=== PATIENT | female | born 1940 | race African-American/Black ===

== ENCOUNTER 2016-09-13 09:05 | Inpatient (IN) | payer MEDICARE, MEDICAID ==
[~2016-09-13] VITALS: Ht 162.6 cm; Wt 65.8 kg
[2016-09-13] MEDS ORDERED: ONDANSETRON HCL 4MG/2ML VIAL IV STA (09:15)
[2016-09-13] MEDS ORDERED: FAMOTIDINE 20MG/2ML VIAL IV STA (09:15)
[2016-09-13] MEDS ORDERED: MORPHINE SULFATE 4 MG/ML CPJ (NOT FOR IM USE) IV STA (09:15)
[2016-09-13] MEDS ORDERED: SODIUM CHLORIDE 0.9% 1,000 ML IV ONE (09:15)
[2016-09-13 11:05] LABS: CLARITY URINE CLEAR (CLEAR); COLOR URINE YELLOW (YELLOW); GLUCOSE URINE TRACE (NEGATIVE); KETONES URINE TRACE (NEGATIVE); LEUKOCYTE ESTERASE URINE NEGATIVE (NEGATIVE); NITRITE URINE NEGATIVE (NEGATIVE); OCCULT BLOOD URINE NEGATIVE (NEGATIVE); PH URINE 7.5 (4.5-8.0); PROTEIN URINE NEGATIVE (NEGATIVE); SPECIFIC GRAVITY URINE 1.009 (1.005-1.030)
[2016-09-13 11:08] LABS: BACTERIA URINE NONE SEEN; CALCIUM PHOSPHATE CRYSTALS UR NONE SEEN /lpf; RBC URINE 0-2 /hpf (0-2); SQUAMOUS EPITHELIAL CELL URINE NONE SEEN /lpf (RARE/1+); WAXY CASTS URINE NONE SEEN /lpf; WBC URINE NONE SEEN /hpf (0-2); YEAST URINE NONE SEEN
[2016-09-13 11:17] LABS: HEMATOCRIT. 43.3 % (36.0-48.0); HEMOGLOBIN. 14.1 g/dL (12.0-16.0); MEAN CORPUSCULAR HEMOGLOBIN 28.1 pg (28.0-32.0); MEAN CORPUSCULAR HGB CONC 32.5 g/dL (31.0-37.0); MEAN CORPUSCULAR VOLUME 86.2 fL (81.0-99.0); MEAN PLATELET VOLUME 10.2 fl (7.4-10.4); PLATELET 112 x1000/uL (130-400); RED BLOOD CELL COUNT 5.02 mill/uL (4.2-5.4); WHITE BLOOD COUNT 9.9 x1000/uL (4.5-11.0)
[2016-09-13 11:18] LABS: DIFFERENTIAL COMMENT 1
[2016-09-13 11:22] LABS: INR 1.1; PROTHROMBIN TIME 11.4 sec
[2016-09-13 11:31] LABS: ALANINE AMINOTRANSFERASE 123 IU/L (13-61); ALBUMIN 3.9 g/dL (3.4-5.0); ANION GAP 12; CALCIUM 9.1 mg/dL (8.5-10.1); CARBON DIOXIDE 32 mEq/L (21-32); CHLORIDE 102 mEq/L (98-107); INDEX HEMOLYSI 1 (1-3); INDEX ICTERIC 2 (1-4); INDEX LIPEMIC 1 (1-3); LIPASE 645 IU/L (73-393); NT PRO B-TYPE NATRIURETIC PEP 896 pg/mL (5-125); TROPONIN I < 0.02 ng/mL (0.00-0.04); UREA NITROGEN BLOOD 9 mg/dL (7-21); eGFR > 60 mL/min (>60)
[2016-09-13 11:37] LABS: GIANT PLATELETS 1+; PLATELET ESTIMATE DECREASED
[2016-09-13] MEDS ORDERED: SODIUM CHLORIDE 0.9% 10ML VIAL ONE (13:31)
[2016-09-13] MEDS ORDERED: IOHEXOL-300 100 ML BOTTLE ONE (13:31)
[2016-09-13 16:30] VITALS: BP 153/81
[2016-09-13] MEDS ORDERED: ONDANSETRON HCL 4MG/2ML VIAL IV PRN (18:30)
[2016-09-13] MEDS ORDERED: NA PHOS,M-B/NA PHOS,DI-BA ENEMA 118ML PR PRN (18:30)
[2016-09-13] MEDS ORDERED: CLONIDINE 0.1MG TABLET PO PRN (18:30)
[2016-09-13] MEDS ORDERED: MAGNESIUM/ALUMINUM HYDROXIDE/SIMETHICONE 30ML UDC PO PRN (18:30)
[2016-09-13] MEDS ORDERED: DIPHENHYDRAMINE 50MG/ML VIAL IV PRN (18:30)
[2016-09-13] MEDS ORDERED: FURO20TA4 PO (19:59)
[2016-09-13] MEDS ORDERED: ATOR40TA70 PO (19:59)
[2016-09-13] MEDS ORDERED: FOLI-43 PO (19:59)
[2016-09-13] MEDS ORDERED: CLOP75TA33 PO (19:59)
[2016-09-13] MEDS ORDERED: LOSA100T14 PO (19:59)
[2016-09-13] MEDS ORDERED: METO25TA6 PO (19:59)
[2016-09-13] MEDS ORDERED: ASPI325T2 PO (19:59)
[2016-09-13] MEDS ORDERED: AMLO5TAB4 PO (19:59)
[2016-09-13 20:00] VITALS: BP 162/81
[2016-09-13] MEDS: SODIUM CHLORIDE 0.45% 1,000 ML IV SCH (21:27)
[2016-09-13] MEDS: METOPROLOL TARTRATE 25MG TABLET PO SCH (22:11)
[2016-09-13] MEDS: AMLODIPINE 5MG TABLET PO SCH (22:12)
[2016-09-14] VITALS: BP 164/81
[2016-09-14] MEDS ORDERED: POTASSIUM CHLORIDE 20MEQ TABLET SR PO NR
[2016-09-14 04:00] VITALS: BP 145/69
[2016-09-14 08:00] VITALS: BP 133/64
[2016-09-14] MEDS: AMLODIPINE 5MG TABLET PO SCH ×2 (09:56→21:09)
[2016-09-14] MEDS: ASPIRIN 325MG TABLET PO SCH (09:56)
[2016-09-14] MEDS: METOPROLOL TARTRATE 25MG TABLET PO SCH ×2 (09:57→21:09)
[2016-09-14] MEDS: LOSARTAN POTASSIUM 100 MG TABLET PO SCH (09:57)
[2016-09-14] MEDS: FOLIC ACID 1MG TABLET PO SCH (09:57)
[2016-09-14] MEDS: CLOPIDOGREL 75MG TABLET PO SCH (09:57)
[2016-09-14] MEDS: FUROSEMIDE 20MG TABLET PO SCH (09:57)
[2016-09-14 12:00] VITALS: BP 140/79
[2016-09-14 16:00] VITALS: BP 139/73
[2016-09-14 20:00] VITALS: BP 158/110
[2016-09-14] MEDS: SODIUM CHLORIDE 0.45% 1,000 ML IV SCH (21:13)
[2016-09-14 23:52] LABS: BASOPHILS % 0.9 % (0.0-2.0); DIFFERENTIAL COMMENT 0; HEMATOCRIT. 39.8 % (36.0-48.0); HEMOGLOBIN. 12.9 g/dL (12.0-16.0); LYMPHOCYTES % 20.2 % (20.0-50.0); MEAN CORPUSCULAR HEMOGLOBIN 27.8 pg (28.0-32.0); MEAN CORPUSCULAR HGB CONC 32.4 g/dL (31.0-37.0); MEAN CORPUSCULAR VOLUME 85.6 fL (81.0-99.0); MEAN PLATELET VOLUME 10.7 fl (7.4-10.4); MONOCYTES % 10.3 % (2.0-8.0); NEUTROPHILS % 66.6 % (40.0-76.0); PLATELET 110 x1000/uL (130-400); RED BLOOD CELL COUNT 4.65 mill/uL (4.2-5.4); RED CELL DISTRIBUTION WIDTH 14.7 % (11.6-14.6); WHITE BLOOD COUNT 6.4 x1000/uL (4.5-11.0)
[2016-09-15] VITALS: BP 143/92
[2016-09-15 00:19] LABS: ALANINE AMINOTRANSFERASE 230 IU/L (13-61); ANION GAP 11; BILIRUBIN DIRECT 0.4 mg/dL (0.0-0.2); CALCIUM 8.7 mg/dL (8.5-10.1); CARBON DIOXIDE 29 mEq/L (21-32); CHLORIDE 105 mEq/L (98-107); CREATINE KINASE MB FRACTION 1.2 ng/mL (0.5-3.6); HDL CHOLESTEROL 75 mg/dL (40-59); INDEX HEMOLYSI 1 (1-3); INDEX ICTERIC 1 (1-4); INDEX LIPEMIC 1 (1-3); LDL CHOLESTEROL 78 mg/dL (5-100); LIPASE 166 IU/L (73-393); TRIGLYCERIDE 71 mg/dL (0-150); UREA NITROGEN BLOOD 13 mg/dL (7-21); eGFR > 60 mL/min (>60)
[2016-09-15 04:00] VITALS: BP 185/85
[2016-09-15] MEDS: SODIUM CHLORIDE 0.45% 1,000 ML IV SCH ×2 (05:18→10:18)
[2016-09-15 08:00] VITALS: BP 137/83
[2016-09-15] MEDS: FOLIC ACID 1MG TABLET PO SCH (10:59)
[2016-09-15] MEDS: FUROSEMIDE 20MG TABLET PO SCH (11:00)
[2016-09-15] MEDS: LOSARTAN POTASSIUM 100 MG TABLET PO SCH (11:00)
[2016-09-15] MEDS: CLOPIDOGREL 75MG TABLET PO SCH (11:00)
[2016-09-15] MEDS: METOPROLOL TARTRATE 25MG TABLET PO SCH (11:00)
[2016-09-15] MEDS: ASPIRIN 325MG TABLET PO SCH (11:00)
[2016-09-15] MEDS: AMLODIPINE 5MG TABLET PO SCH (11:00)
[2016-09-15 12:00] VITALS: BP 127/78
== END 2016-09-15 14:45 | disposition home or self-care (01) | DRG 391 ==
LOC: EDBD 09:23 → ER 09:23 → 6EST 13:39
PROVIDERS: ADMIT Family Medicine; ATTEND Family Medicine
DX: K52.9 Noninfective gastroenteritis and colitis, unspecified (principal); K85.90 Acute pancreatitis without necrosis or infection, unspecified; J44.9 Chronic obstructive pulmonary disease, unspecified; I25.10 Atherosclerotic heart disease of native coronary artery without angina pectoris; E87.6 Hypokalemia; I10 Essential (primary) hypertension; E78.5 Hyperlipidemia, unspecified; E11.9 Type 2 diabetes mellitus without complications; D69.6 Thrombocytopenia, unspecified; I44.0 Atrioventricular block, first degree; Z96.649 Presence of unspecified artificial hip joint; Z96.653 Presence of artificial knee joint, bilateral; Z95.5 Presence of coronary angioplasty implant and graft; Z79.82 Long term (current) use of aspirin; I25.2 Old myocardial infarction; Z79.899 Other long term (current) drug therapy
CPT/HCPCS: 36415; 71010; 74177; 74181; 76705; 80053; 80061; 80076; 81001; 82248; 82553; 83605; 83690; 83880; 84484; 85025; 85610; 93005; 96361; 96374; 96375; 99285; A4216; J2270; J2405; J3490; J7030; J7060; Q9967

== ENCOUNTER 2016-10-23 22:58 | Emergency (ER) | payer OTHER, MEDICAID ==
[~2016-10-23] VITALS: Ht 162.6 cm; Wt 83.0 kg
[~2016-10-23 22:58] MED LIST: AMLO5TAB4 PO; ASPI325T2 PO; CLOP75TA33 PO; FOLI-43 PO; FURO20TA4 PO; LOSA100T14 PO; METO25TA6 PO
[2016-10-23] MEDS ORDERED: ONDANSETRON HCL 4MG/2ML VIAL IV STA (23:26)
[2016-10-23] MEDS ORDERED: MORPHINE SULFATE 4 MG/ML CPJ (NOT FOR IM USE) IV STA (23:26)
[2016-10-23 23:53] LABS: BASOPHILS % 0.3 % (0.0-2.0); EOSINOPHILS % 0.1 % (0.0-5.0); HEMATOCRIT. 40.9 % (36.0-48.0); HEMOGLOBIN. 13.3 g/dL (12.0-16.0); LYMPHOCYTES % 8.6 % (20.0-50.0); MEAN CORPUSCULAR HEMOGLOBIN 27.6 pg (28.0-32.0); MEAN CORPUSCULAR HGB CONC 32.5 g/dL (31.0-37.0); MEAN PLATELET VOLUME 10.6 fl (7.4-10.4); MONOCYTES % 4.4 % (2.0-8.0); NEUTROPHILS % 86.6 % (40.0-76.0); PLATELET 110 x1000/uL (130-400); RED BLOOD CELL COUNT 4.81 mill/uL (4.2-5.4); RED CELL DISTRIBUTION WIDTH 14.4 % (11.6-14.6); WHITE BLOOD COUNT 11.4 x1000/uL (4.5-11.0)
[2016-10-24 00:01] LABS: INR 1.1; PROTHROMBIN TIME 10.9 sec
[2016-10-24 00:05] LABS: ALBUMIN 3.7 g/dL (3.4-5.0); ANION GAP 13; CALCIUM 9.1 mg/dL (8.5-10.1); CARBON DIOXIDE 28 mEq/L (21-32); CHLORIDE 104 mEq/L (98-107); UREA NITROGEN BLOOD 13 mg/dL (7-21); eGFR > 60 mL/min (>60)
[2016-10-24 00:06] LABS: ALANINE AMINOTRANSFERASE 38 IU/L (13-61); INDEX HEMOLYSI 1 (1-3); INDEX ICTERIC 1 (1-4); INDEX LIPEMIC 1 (1-3); LIPASE 1303 IU/L (73-393); TROPONIN I 0.02 ng/mL (0.00-0.04)
[2016-10-24 00:19] LABS: CLARITY URINE CLEAR (CLEAR); COLOR URINE YELLOW (YELLOW); GLUCOSE URINE NEGATIVE (NEGATIVE); KETONES URINE 1+ (NEGATIVE); LEUKOCYTE ESTERASE URINE NEGATIVE (NEGATIVE); NITRITE URINE NEGATIVE (NEGATIVE); OCCULT BLOOD URINE NEGATIVE (NEGATIVE); PROTEIN URINE NEGATIVE (NEGATIVE); SPECIFIC GRAVITY URINE 1.011 (1.005-1.030)
[2016-10-24] MEDS ORDERED: DEXT 5%/0.45% NACL 1000ML 1,000 ML IV SCH (05:17)
[2016-10-24 05:26] VITALS: BP 164/91
[2016-10-24] MEDS ORDERED: HYDROMORPHONE HCL/PF 2MG/ML CPJ IV PRN ×2 (05:30→06:45)
[2016-10-24] MEDS ORDERED: LEVOFLOXACIN 500MG PREMIX 100 ML IV SCH ×2 (05:30→06:45)
[2016-10-24] MEDS ORDERED: DOCUSATE SODIUM 100MG CAPSULE PO PRN ×2 (05:30→06:45)
[2016-10-24] MEDS ORDERED: ENOXAPARIN 40MG/0.4ML SYR SUBCUT SCH ×2 (05:30→06:45)
[2016-10-24] MEDS ORDERED: ACETAMINOPHEN 325MG TABLET PO PRN ×2 (05:30→06:45)
[2016-10-24] MEDS ORDERED: CLONIDINE 0.1MG TABLET PO PRN ×2 (05:30→06:45)
[2016-10-24] MEDS ORDERED: METRONIDAZOLE 500 MG PREMIX 100 ML IV SCH ×2 (06:00→06:45)
[2016-10-24] MEDS ORDERED: PANTOPRAZOLE SODIUM 40 MG/VIAL IV SCH ×2 (09:00→09:15)
== END 2016-10-24 06:39 | disposition left against medical advice (07) ==
LOC: ER 22:59 → SUPCPDRO 10-24 07:49
DX: N39.0 Urinary tract infection, site not specified (principal); I10 Essential (primary) hypertension; Z79.899 Other long term (current) drug therapy
CPT/HCPCS: 36415; 71010; 80053; 81003; 83690; 84484; 85025; 85610; 87040; 87086; 93005; 96374; 96375; 99285; J2270; J2405

== ENCOUNTER 2018-10-11 12:07 | Inpatient (IN) | payer MEDICARE, MEDICAID ==
[~2018-10-11] VITALS: Ht 152.4 cm; Wt 68.0 kg
[~2018-10-11 12:07] MED LIST changes: +ASPI-986 PO; -ASPI325T2 PO
[2018-10-11] MEDS ORDERED: FAMOTIDINE 20MG/2ML VIAL IV STA (12:18)
[2018-10-11 12:47] LABS: BASOPHILS % 0.9 % (0.0-2.0); EOSINOPHILS % 1.2 % (0.0-5.0); HEMATOCRIT. 42.5 % (36.0-48.0); LYMPHOCYTES % 18.8 % (20.0-50.0); MEAN CORPUSCULAR HEMOGLOBIN 28.4 pg (28.0-32.0); MEAN CORPUSCULAR VOLUME 86.3 fL (81.0-99.0); MEAN PLATELET VOLUME 9.9 fl (7.4-10.4); MONOCYTES % 6.4 % (2.0-8.0); NEUTROPHILS % 72.7 % (40.0-76.0); PLATELET 95 x1000/uL (130-400); RED BLOOD CELL COUNT 4.93 mill/uL (4.2-5.4); RED CELL DISTRIBUTION WIDTH 15.1 % (11.6-14.6)
[2018-10-11 12:52] LABS: CHLORIDE 108 mEq/L (98-107)
[2018-10-11 12:53] LABS: INR 1.1; PROTHROMBIN TIME 11.5 sec (9.6-11.0)
[2018-10-11] MEDS ORDERED: SORBITOL 70% SOLN 30ML PO ONE (14:45)
[2018-10-11] MEDS ORDERED: ASPIRIN 81MG TABLET PO ONE (14:45)
[2018-10-11] MEDS ORDERED: MORPHINE SULFATE 4 MG/ML CPJ (NOT FOR IM USE) IV ONE (14:45)
[2018-10-11] MEDS ORDERED: ONDANSETRON HCL 4MG/2ML INJ IV ONE (14:45)
[2018-10-11 14:57] LABS: CLARITY URINE CLEAR (CLEAR); COLOR URINE YELLOW (YELLOW); KETONES URINE TRACE (NEGATIVE); LEUKOCYTE ESTERASE URINE NEGATIVE (NEGATIVE); NITRITE URINE NEGATIVE (NEGATIVE); OCCULT BLOOD URINE NEGATIVE (NEGATIVE); PROTEIN URINE NEGATIVE (NEGATIVE); SPECIFIC GRAVITY URINE 1.025 (1.005-1.030)
[2018-10-11] MEDS ORDERED: ACETAMINOPHEN 325MG TABLET PO PRN (15:30)
[2018-10-11] MEDS ORDERED: ONDANSETRON HCL 4MG/2ML INJ IV PRN (15:30)
[2018-10-11] MEDS ORDERED: NA PHOS,M-B/NA PHOS,DI-BA ENEMA 118ML PR PRN (15:30)
[2018-10-11] MEDS ORDERED: LACTULOSE 20G/30ML UDC PO PRN (15:30)
[2018-10-11 17:28] VITALS: BP 169/94
[2018-10-11 17:56] VITALS: BP 148/82
[2018-10-11] MEDS: DOCUSATE SODIUM 250MG CAPSULE PO SCH (17:58)
[2018-10-11] MEDS: POTASSIUM CHLORIDE 20MEQ TABLET SR PO NR ×2 (17:58→18:01)
[2018-10-11 20:00] VITALS: BP 147/78
[2018-10-12] VITALS (8 sets, daily range): BP systolic 107–168; BP diastolic 68–100
[2018-10-12] MEDS ORDERED: LOSA100T14 PO (04:20)
[2018-10-12] MEDS ORDERED: AMLO5TAB88 PO (04:20)
[2018-10-12] MEDS ORDERED: METO25TA6 PO (04:20)
[2018-10-12] MEDS ORDERED: CLOP75TA33 PO (04:20)
[2018-10-12] MEDS ORDERED: FOLI-43 PO (04:20)
[2018-10-12] MEDS ORDERED: ASPI-986 PO (04:20)
[2018-10-12] MEDS ORDERED: FURO20TA4 PO (04:20)
[2018-10-12] MEDS: DOCUSATE SODIUM 250MG CAPSULE PO SCH (08:22)
[2018-10-12] MEDS: FUROSEMIDE 20MG TABLET PO SCH (08:22)
[2018-10-12] MEDS: FOLIC ACID 1MG TABLET PO SCH (08:22)
[2018-10-12] MEDS: METOPROLOL TARTRATE 25MG TABLET PO SCH ×2 (08:23→20:50)
[2018-10-12] MEDS: AMLODIPINE 5MG TABLET PO SCH (08:23)
[2018-10-12] MEDS: LOSARTAN POTASSIUM 100 MG TABLET PO SCH (08:23)
[2018-10-12] MEDS ORDERED: ASPIRIN 325MG EC TABLET PO SCH (09:00)
[2018-10-12] MEDS ORDERED: ASPIRIN 81MG TABLET PO SCH (09:00)
[2018-10-12] MEDS ORDERED: CLOPIDOGREL 75MG TABLET PO SCH (09:00)
[2018-10-13] VITALS: BP 185/87
[2018-10-13] MEDS ORDERED: CLONIDINE 0.1MG TABLET PO PRN (02:15)
[2018-10-13 04:00] VITALS: BP 149/80
[2018-10-13 07:25] LABS: BASOPHILS % 0.8 % (0.0-2.0); EOSINOPHILS % 1.9 % (0.0-5.0); HEMATOCRIT. 40.4 % (36.0-48.0); HEMOGLOBIN. 13.4 g/dL (12.0-16.0); LYMPHOCYTES % 30.4 % (20.0-50.0); MEAN CORPUSCULAR HEMOGLOBIN 28.7 pg (28.0-32.0); MEAN CORPUSCULAR VOLUME 86.4 fL (81.0-99.0); MEAN PLATELET VOLUME 9.4 fl (7.4-10.4); MONOCYTES % 7.5 % (2.0-8.0); NEUTROPHILS % 59.4 % (40.0-76.0); PLATELET 98 x1000/uL (130-400); RED BLOOD CELL COUNT 4.68 mill/uL (4.2-5.4); RED CELL DISTRIBUTION WIDTH 15.2 % (11.6-14.6)
[2018-10-13 07:49] LABS: CHLORIDE 108 mEq/L (98-107)
[2018-10-13 07:57] LABS: LDL CHOLESTEROL 86 mg/dL (5-100)
[2018-10-13 07:58] LABS: HDL CHOLESTEROL 69 mg/dL (40-59)
[2018-10-13 08:00] VITALS: BP 125/66
[2018-10-13] MEDS: METOPROLOL TARTRATE 25MG TABLET PO SCH ×2 (09:00→20:45)
[2018-10-13] MEDS: FUROSEMIDE 20MG TABLET PO SCH (09:22)
[2018-10-13] MEDS: LOSARTAN POTASSIUM 100 MG TABLET PO SCH (09:22)
[2018-10-13] MEDS: DOCUSATE SODIUM 250MG CAPSULE PO SCH (09:22)
[2018-10-13] MEDS: FOLIC ACID 1MG TABLET PO SCH (09:22)
[2018-10-13] MEDS: AMLODIPINE 5MG TABLET PO SCH (09:23)
[2018-10-13 12:00] VITALS: BP 133/67
[2018-10-13] MEDS ORDERED: POTASSIUM CHLORIDE 20MEQ TABLET SR PO SCH (13:00)
[2018-10-13 16:00] VITALS: BP 116/74
[2018-10-13 20:00] VITALS: BP 145/70
[2018-10-14] VITALS: BP 139/63
[2018-10-14 04:00] VITALS: BP 145/73
[2018-10-14 08:00] VITALS: BP 151/70
[2018-10-14] MEDS: DOCUSATE SODIUM 250MG CAPSULE PO SCH (08:24)
[2018-10-14] MEDS: FUROSEMIDE 20MG TABLET PO SCH (08:24)
[2018-10-14] MEDS: LOSARTAN POTASSIUM 100 MG TABLET PO SCH (08:24)
[2018-10-14] MEDS: AMLODIPINE 5MG TABLET PO SCH (08:24)
[2018-10-14] MEDS: METOPROLOL TARTRATE 25MG TABLET PO SCH (08:25)
[2018-10-14] MEDS: FOLIC ACID 1MG TABLET PO SCH (08:25)
[2018-10-14 10:17] VITALS: BP_SYST 149; BP_SYST 151; BP_DIAS 70; BP_DIAS 74
== END 2018-10-14 12:58 | disposition home or self-care (01) | DRG 392 ==
LOC: ER 12:17 → 8WST 14:49 → ENRESERV 15:56
PROVIDERS: ADMIT Internal Medicine; ATTEND Internal Medicine
DX: K59.00 Constipation, unspecified (principal); I25.10 Atherosclerotic heart disease of native coronary artery without angina pectoris; E87.6 Hypokalemia; D69.6 Thrombocytopenia, unspecified; E87.8 Other disorders of electrolyte and fluid balance, not elsewhere classified; Z96.641 Presence of right artificial hip joint; I10 Essential (primary) hypertension; Z95.5 Presence of coronary angioplasty implant and graft; Z86.73 Personal history of transient ischemic attack (TIA), and cerebral infarction without residual deficits; I25.2 Old myocardial infarction; Z79.82 Long term (current) use of aspirin; Z79.899 Other long term (current) drug therapy
CPT/HCPCS: 36415; 71045; 74176; 80048; 80061; 84484; 93005; 93306; 96374; 99285; J2270; J2405; J3490